=== PATIENT | female | born 1935 | race Caucasian/White ===

== ENCOUNTER 2024-06-18 07:20 | Emergency (ER) | payer BC, MEDICARE, OTHER ==
[~2024-06-18] VITALS: Ht 154.9 cm; Wt 70.3 kg
[2024-06-18] MEDS ORDERED: GUAI-1189 (07:43)
[2024-06-18] MEDS ORDERED: GALA12TA15 PO (07:43)
[2024-06-18] MEDS ORDERED: QUET25TA PO ×2 (07:43)
[2024-06-18] MEDS ORDERED: AMLO5TAB4 PO (07:43)
[2024-06-18] MEDS ORDERED: LORA0.5T48 PO (07:43)
[2024-06-18] MEDS ORDERED: [UNRECOGNIZED DRUG - OTHER] PO (07:43)
[2024-06-18] MEDS ORDERED: MULT-594 PO (07:43)
[2024-06-18] MEDS ORDERED: INUL2TAB5 PO (07:43)
[2024-06-18] MEDS ORDERED: DOCU-141 PO (07:43)
[2024-06-18] MEDS ORDERED: LATA7.5D EACHEYE (07:43)
[2024-06-18 11:19] VITALS: BP 109/71; TEMP 98.8; O2SAT 95
== END 2024-06-18 11:23 | disposition home or self-care (01) ==
LOC: ER 07:20
DX: M25.511 Pain in right shoulder (principal); F03.911 Unspecified dementia, unspecified severity, with agitation; I11.9 Hypertensive heart disease without heart failure; Z79.899 Other long term (current) drug therapy; Z85.038 Personal history of other malignant neoplasm of large intestine; W06.XXXA Fall from bed, initial encounter; Y93.89 Activity, other specified; Y92.89 Other specified places as the place of occurrence of the external cause; Y99.8 Other external cause status
CPT/HCPCS: 70450; 71045; 72125; 72170; 73030; A4606; A4663

== ENCOUNTER 2024-10-28 07:07 | Inpatient (IN) | payer BC ==
[~2024-10-28] VITALS: Ht 162.6 cm; Wt 68.0 kg
[~2024-10-28 07:07] MED LIST: AMLO5TAB4 PO; DOCU-141 PO; GALA12TA15 PO; GUAI-1189; INUL2TAB5 PO; LATA7.5D EACHEYE; LORA0.5T48 PO; MULT-594 PO; QUET25TA PO; [UNRECOGNIZED DRUG - OTHER] PO
[2024-10-28] MEDS ORDERED: ONDANSETRON 4 MG/2 ML VIAL ONE (07:26)
[2024-10-28] MEDS ORDERED: VANCOMYCIN IV 200 ML ONE (07:26)
[2024-10-28] MEDS ORDERED: MEROPENEM 1GM/NS 100ML IVPB **ER PYXIS ONLY IV ONE (07:26)
[2024-10-28] MEDS: IV LACTATED RINGERS SOLUTION 1,000 ML BAG IV ONE (07:26)
[2024-10-28] MEDS ORDERED: MORPHINE SULFATE 2 MG/1 ML DISP.SYRIN ONE ×3 (07:26→13:32)
[2024-10-28] MEDS: ONDANSETRON 4 MG/2 ML VIAL IV ONE (07:31)
[2024-10-28] MEDS: MORPHINE SULFATE 2 MG/1 ML DISP.SYRIN IV ONE ×2 (07:32→09:00)
[2024-10-28] MEDS: MEROPENEM 1,000 MG in IV NORMAL SALINE 100 ML IV ONE (07:38)
[2024-10-28] MEDS: VANCOMYCIN IV 1,000 MG in IV DEXTROSE 5% 250 ML IV ONE (07:38)
[2024-10-28 07:46] LABS: BASOPHILS # (AUTO) 0.1 K/UL (0.0-0.2); BASOPHILS % (AUTO) 0.3 % (0.0-2.0); EOSINOPHILS % (AUTO) 0.1 % (0.0-7.0); HEMATOCRIT 37.5 % (31.2-41.9); HEMOGLOBIN 11.9 g/dL (10.9-14.3); LYMPHOCYTES # (AUTO) 1.9 K/uL (0.8-4.8); MEAN CORPUSCULAR HEMOGLOBIN 29.5 uug (24.7-32.8); MEAN CORPUSCULAR HGB CONC 32 g/dL (32.3-35.6); MEAN CORPUSCULAR VOLUME 92.7 fL (75.5-95.3); MONOCYTES # (AUTO) 1.6 K/uL (0.1-1.30); NEUTROPHILS # (AUTO) 28.1 K/uL (1.8-8.9); NEUTROPHILS % (AUTO) 88.6 % (38.5-71.5); PLATELET COUNT (AUTO) 261 K/uL (179-408); RED BLOOD CELL COUNT(AUTO) 4.04 MIL/uL (3.63-4.92); RED CELL DISTRIBUTION WIDTH 15.4 % (12.3-17.7)
[2024-10-28] MEDS ORDERED: SENN8.6T19 PO (07:51)
[2024-10-28] MEDS ORDERED: MULT-1251 PO (07:51)
[2024-10-28] MEDS ORDERED: MIRT7.5T10 PO (07:51)
[2024-10-28] MEDS ORDERED: POLY250017 PO (07:51)
[2024-10-28] MEDS ORDERED: VITAFUSION FIBER PO (07:51)
[2024-10-28 07:54] LABS: DIFFERENTIAL COMMENT 1; WHITE BLOOD COUNT (AUTO) 31.7 K/uL (3.8-11.8)
[2024-10-28 08:01] LABS: ALANINE AMINOTRANSFERASE 31 U/L (14-59); ALKALINE PHOSPHATASE 117 U/L (50-136); ASPARTATE AMINOTRANSFERASE 35 U/L (15-37); BILIRUBIN,DIRECT 0.2 mg/dL (0.0-0.2); BILIRUBIN,TOTAL 0.6 mg/dL (0.2-1.0); CARBON DIOXIDE 19 mmol/L (21-32); CREATININE 5.8 mg/dL (0.6-1.3); GLUCOSE 140 mg/dL (74-106); POTASSIUM 4.9 mmol/L (3.5-5.1)
[2024-10-28 08:03] LABS: SODIUM SERUM 165 mmol/L (136-145)
[2024-10-28 08:04] LABS: CHLORIDE 130 mmol/L (98-107); UREA NITROGEN, BLOOD 139 mg/dL (7-18)
[2024-10-28 08:07] LABS: NT-PRO BNP 2970 pg/mL (0-125)
[2024-10-28] MEDS: ACETAMINOPHEN 650 MG SUPP.RECT RC ONE (08:15)
[2024-10-28] MEDS: IV D5W 1000ML 1,000 ML IV ONE ×2 (08:15→08:30)
[2024-10-28 08:25] LABS: MAGNESIUM 3.4 mg/dL (1.8-2.4); PHOSPHOROUS 5.5 mg/dL (2.5-4.9)
[2024-10-28 08:34] LABS: ANISOCYTOSIS 1+; LYMPHOCYTES % (MANUAL) 8 % (20-40); MONOCYTES % (MANUAL) 4 % (2-10); NEUTROPHILS % (MANUAL) 88 % (42-75); PLATELET ESTIMATE ADEQUATE
[2024-10-28 08:38] LABS: *BILIRUBIN,URIN 1+ (NEGATIVE); *CLARITY,URINE SLIGHTLY CLOUDY (CLEAR); *COLOR,URINE YELLOW (YELLOW); *KETONES,URINE TRACE (NEGATIVE); *PROTEIN,URINE 2+ (NEGATIVE); LEUKOCYTE ESTERASE ,URINE 1+ (NEGATIVE); NITRITE, URINE NEGATIVE (NEGATIVE); UGLUCOSE NEGATIVE (NEGATIVE)
[2024-10-28 08:43] LABS: *BLOOD, URINE TRACE (NEGATIVE)
[2024-10-28 08:47] LABS: BACTERIA,URINE MANY /HPF (NONE SEEN); SQUAMOUS EPITHELIAL CELL,UR MODERATE /HPF (NONE SEEN); URINE AMORPHOUS URATE MODERATE /HPF; WBC,URINE 20-50 /HPF (0-3)
[2024-10-28] MEDS: LORAZEPAM 2 MG/1 ML VIAL IV ONE (09:00)
[2024-10-28] MEDS ORDERED: KETOROLAC TROMETHAMINE 30 MG INJ ONE (09:01)
[2024-10-28] MEDS ORDERED: METOCLOPRAMIDE HCL 10 MG/2 ML VIAL ONE (09:01)
[2024-10-28] MEDS ORDERED: diphenhydrAMINE 50 MG/1 ML VIAL ONE (09:01)
[2024-10-28] MEDS ORDERED: LORAZEPAM 2 MG/1 ML VIAL ONE (09:05)
[2024-10-28 09:13] LABS: CALCIUM 7.4 mg/dL (8.5-10.1); CARBON DIOXIDE 14 mmol/L (21-32); CHLORIDE 118 mmol/L (98-107); POTASSIUM 4.4 mmol/L (3.5-5.1); SODIUM SERUM 148 mmol/L (136-145)
[2024-10-28 09:14] VITALS: TEMP 98.8
[2024-10-28 09:21] LABS: GLUCOSE 597 mg/dL (74-106); UREA NITROGEN, BLOOD 120 mg/dL (7-18)
[2024-10-28] MEDS: INSULIN REGULAR, HUMAN 1000 UNIT/10 ML VIAL SQ ONE (09:37)
[2024-10-28 10:35] VITALS: O2SAT 100
[2024-10-28] MEDS: IV LACTATED RINGERS SOLUTION 1,000 ML IV ONE (11:28)
[2024-10-28] MEDS ORDERED: MORPHINE SULFATE 2 MG/1 ML DISP.SYRIN IV ONE (13:30)
[2024-10-28] MEDS: MORPHINE SULFATE 4 MG/1 ML DISP.SYRIN SQ ONE (13:30)
[2024-10-28] MEDS ORDERED: MORPHINE SULFATE 2 MG/1 ML DISP.SYRIN IV PRN (17:30)
[2024-10-29] MEDS: MORPHINE SULFATE 20 MG/1 ML ORAL LIQ. SL PRN (19:32)
[2024-10-30] MEDS: MORPHINE SULFATE 20 MG/1 ML ORAL LIQ. SL PRN (14:19)
== END 2024-10-30 17:45 | DRG 871 ==
LOC: ER 07:07 → MEDSURG3 16:56
PROVIDERS: ADMIT Internal Medicine; ATTEND Internal Medicine
DX: A41.9 Sepsis, unspecified organism (principal); G92.8 Other toxic encephalopathy; J69.0 Pneumonitis due to inhalation of food and vomit; J96.01 Acute respiratory failure with hypoxia; R65.21 Severe sepsis with septic shock; N39.0 Urinary tract infection, site not specified; N17.9 Acute kidney failure, unspecified; E87.0 Hyperosmolality and hypernatremia; Z51.5 Encounter for palliative care; Z66 Do not resuscitate; Z85.038 Personal history of other malignant neoplasm of large intestine; Z79.899 Other long term (current) drug therapy; G30.9 Alzheimer's disease, unspecified; F02.80 Dementia in other diseases classified elsewhere, unspecified severity, without behavioral disturbance, psychotic disturbance, mood disturbance, and anxiety; R91.1 Solitary pulmonary nodule; I12.9 Hypertensive chronic kidney disease with stage 1 through stage 4 chronic kidney disease, or unspecified chronic kidney disease; N18.9 Chronic kidney disease, unspecified; R73.9 Hyperglycemia, unspecified; R79.89 Other specified abnormal findings of blood chemistry
CPT/HCPCS: 71045; 83605; 83735; 84100; 84484; 85025; 85730; 87040; 87086; A4663; G0378; J1200; J1815; J1885; J2060; J2185; J2270; J2405; J2765; J3370; J7040; J7120